=== PATIENT | female | born 1945 | race Caucasian/White ===

== ENCOUNTER 2017-06-04 12:29 | Emergency (ER) | payer OTHER ==
[~2017-06-04] VITALS: Ht 160 cm; Wt 99.8 kg
--- NOTE | ~2017-06-04 | EKG ---
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
[~2017-06-04 12:29] MED LIST: MOTION RELIEF25 MG PO; ZOFRAN ODT4 MG PO
[2017-06-04 12:55] LABS: HEMATOCRIT 32.7 % (37.0-47.0); HEMOGLOBIN 11.5 gm/dL (12.0-15.0); MCH 29.1 pg (26.0-34.0); MCHC 35.2 g/dL (28.0-37.0); MCV 82.6 fL (80.0-100.0); PLATELET COUNT 196 thou/uL (150-400); RBC 3.96 mil/uL (4.20-5.00); RDW 13.6 % (10.5-14.5); WBC 4.9 thou/uL (4.0-11.0)
[2017-06-04 13:13] LABS: ANION GAP 11 mmol/L (7-16); BUN 20 mg/dL (7-18); CALCIUM 7.8 mg/dL (8.5-10.1); CHLORIDE 99 mmol/L (98-107); CO2 26 mmol/L (21-32); CREATININE 1.9 mg/dL (0.6-1.0); GLUCOSE 138 mg/dL (74-106); SODIUM 136 mmol/L (136-145)
[2017-06-04 13:15] LABS: POTASSIUM 2.8 mmol/L (3.5-5.1)
[2017-06-04 13:22] LABS: SGOT 39 U/L (15-37); SGPT 22 U/L (30-65); TOTAL BILIRUBIN 0.5 mg/dL (<0.1-1.0); TOTAL PROTEIN 6.9 g/dL (6.4-8.2); TROPONIN-I < 0.04 ng/mL (<0.06)
[2017-06-04 14:10] LABS: ABSOLUTE NEUTROPHILS 3.8 thou/uL (1.4-8.2)
[2017-06-04 14:48] LABS: URINE BILIRUBIN NEGATIVE (Negative); URINE BLOOD 3+ (Negative); URINE GLUCOSE-RANDOM* NEGATIVE (Negative); URINE KETONES NEGATIVE (Negative); URINE LEUKOCYTES 2+ (Negative); URINE NITRITE NEGATIVE (Negative); URINE PROTEIN (DIPSTICK) 2+ (Negative); URINE UROBILINOGEN 0.2 E.U./dl (0.2-1.0)
[2017-06-04 14:49] LABS: URINE CLARITY HAZY; URINE COLOR BROWNISH YELLOW
[2017-06-04 15:03] LABS: BACTERIA >30 Many /HPF (None Seen); SQUAMOUS 0-3 Few /LPF (0-3)
[2017-06-04 15:05] LABS: CASTS None Seen /LPF (None Seen); CRYSTALS None Seen /LPF (None Seen); URINE RBC >20 Many /HPF (0-2); YEAST Present (None Seen)
[2017-06-04] MEDS ORDERED: POTASSIUM20 PO (15:53)
[2017-06-04] MEDS ORDERED: ONDANSETRON HCL4 M2 PO (15:53)
[2017-06-04] MEDS ORDERED: KEFLEX500 M1 PO (15:53)
== END 2017-06-04 16:25 | disposition home or self-care (01) ==
LOC: ER 12:29
PROVIDERS: Physician Assistant
DX: R11.2 Nausea with vomiting, unspecified (principal); S37.009A Unspecified injury of unspecified kidney, initial encounter; E87.6 Hypokalemia; N39.0 Urinary tract infection, site not specified; Z87.891 Personal history of nicotine dependence; Z88.6 Allergy status to analgesic agent; Z98.890 Other specified postprocedural states